=== PATIENT | female | born 1990 | race Caucasian/White ===

== ENCOUNTER 2016-12-11 17:59 | Outpatient (CLI) | END 2016-12-11 18:00 | disposition home or self-care (01) | LOC: AMBL 17:59 | PROVIDERS: ATTEND Emergency Medicine | DX: R56.9 Unspecified convulsions (principal) ==

== ENCOUNTER 2016-12-16 17:50 | Emergency (ER) ==
[2016-12-16 18:05] VITALS: BP 121/76; TEMP 99.3; BMI 29.2
[2016-12-16] MEDS ORDERED: SODIUM CHLORIDE 1,000 ML IV STA (18:13)
[2016-12-16] MEDS ORDERED: DEMEROL 25 MG/ML SYRINGE IVP STA (18:13)
[2016-12-16] MEDS ORDERED: ZOFRAN 4 MG/2 ML IVP STA (18:13)
--- NOTE | 2016-12-16 18:16 | ED.PDOC ---
General Stated Complaint: Been hurting in the rt lower side of the belly, nausea, voiting not able to keep anything corin. Time Seen by Physician: 18:14 Mode of Arrival: Walk-In Information Source: Patient Nursing and Triage Documentation Reviewed and Agree: Yes <RADAMES GUNTER - Last Filed: 12/16/16 18:27> Mode of Arrival: Walk-In Information Source: Patient Nursing and Triage Documentation Reviewed and Agree: Yes <RENETTA BRAGA - Last Filed: 12/21/16 19:15> ED Provider: Dr. RENETTA ALMARAZNORA Chief Complaint: Abdominal Pain GI Complaint Exam - Abdominal Pain Complaint/Exam Onset: Gradual Symptoms Are: Still present Timing: Constant Initial Severity: Severe Current Severity: Severe Location of Pain: RLQ Radiates To: Reports: Back Character: Reports: Dull, Aching Aggravating: Reports: Movement, Deep breaths Alleviating: Reports: None Associated Signs and Symptoms: Reports: Nausea, Vomiting. Denies: Diaphoresis, Fever, Cough, Chest pain, Dizziness, Back pain, Constipation, Blood in stool, Dysuria, Urinary frequency, Decreased urine output, Decreased appetite, Vaginal bleeding, Vaginal discharge, Diarrhea, Sore throat, Decreased activity AAA Risk Factors: Reports: None Cardiac Risk Factors: Reports: None Ectopic Risk Factors: Reports: None Ovarian Torsion Risk Factors: Reports: None Surgical Obstruction Risk Factors: Reports: None Related Surgical History: Reports: None Abdominal Findings: Present: Unequal femoral pulses. Absent: Pulsatile mass, Abdominal distention Differential Diagnoses: Appendicitis, Renal Colic, UTI <RADAMES GUNTER - Last Filed: 12/16/16 18:27> - Abdominal Pain Complaint/Exam Onset: Gradual <RENETTA BRAGA - Last Filed: 12/21/16 19:15> Review of Systems - Review Of Systems Constitutional: Reports: Malaise, Weakness Eyes: Reports: No symptoms Ears, Nose, Mouth, Throat: Reports: No symptoms Respiratory: Reports: No symptoms Cardiac: Reports: No symptoms GI: Reports: Abdominal pain, Nausea, Vomiting : Reports: No symptoms Musculoskeletal: Reports: No symptoms Skin: Reports: No symptoms Neurological: Reports: No symptoms Endocrine: Reports: No symptoms Hematologic/Lymphatic: Reports: No symptoms All Other Systems: Reviewed and Negative <RADAMES GUNTER - Last Filed: 12/16/16 18:27> - Review Of Systems Constitutional: Reports: Malaise, Weakness Eyes: Reports: No symptoms Ears, Nose, Mouth, Throat: Reports: No symptoms Respiratory: Reports: No symptoms Cardiac: Reports: No symptoms GI: Reports: Abdominal pain, Nausea, Vomiting : Reports: No symptoms Musculoskeletal: Reports: No symptoms Skin: Reports: No symptoms Neurological: Reports: No symptoms Endocrine: Reports: No symptoms Hematologic/Lymphatic: Reports: No symptoms All Other Systems: Reviewed and Negative <RENETTA BRAGA - Last Filed: 12/21/16 19:15> Past Medical History - Past Medical History Previously Healthy: Yes Endocrine: Reports: None Cardiovascular: Reports: None Respiratory: Reports: None Hematological: Reports: None Gastrointestinal: Reports: None 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) Neuro/Psych: Reports: None Musculoskeletal: Reports: None Cancer: Reports: None Last Menstrual Period: Patient unsure - Surgical History General Surgical History: Reports: Other (LEEP, HYSTEROSCOPY) - Social History Smoking Status: Current every day smoker, Light tobacco smoker Smoking Cessation Counseling Time: > 3 min - 10 min Hx Substance Use: No Alcohol Screening: None - Immunizations Tetanus Shot up to Date: Yes <RADAMES GUNTER - Last Filed: 12/16/16 18:27> - Past Medical History Endocrine: Reports: None Cardiovascular: Reports: None Respiratory: Reports: None Hematological: Reports: None Gastrointestinal: Reports: None Genitourinary: Reports: Other Neuro/Psych: Reports: None Musculoskeletal: Reports: None Cancer: Reports: None - Surgical History General Surgical History: Reports: Other - Family History Family History: Reports: Unknown - Social History Smoking Status: Light tobacco smoker Smoking Cessation Counseling Time: > 3 min - 10 min Hx Substance Use: No Alcohol Screening: None - Immunizations Tetanus Shot up to Date: Yes <RENETTA BRAGA - Last Filed: 12/21/16 19:15> Physical Exam - Physical Exam Appearance: Ill-appearing, Obese Pain Distress: Severe Eyes: BRIAN, EOMI, Conjunctiva clear ENT: Ears normal, Nose normal, Oropharynx normal Respiratory: Airway patent, Breath sounds clear, Breath sounds equal, Respirations nonlabored Cardiovascular: RRR, Pulses normal, No rub, No murmur GI/: Soft, Tender Musculoskeletal: Normal strength, ROM intact, No edema, No calf tenderness Skin: Warm, Dry, Normal color Neurological: Sensation intact, Motor intact, Reflexes intact, Cranial nerves intact, Alert, Oriented Psychiatric: Affect appropriate, Mood appropriate <RADAMES GUNTER - Last Filed: 12/16/16 18:27> - Physical Exam Appearance: Well-appearing, No pain distress, Well-nourished Eyes: BRIAN, EOMI, Conjunctiva clear ENT: Ears normal, Nose normal, Oropharynx normal Respiratory: Airway patent, Breath sounds clear, Breath sounds equal, Respirations nonlabored Cardiovascular: RRR, Pulses normal, No rub, No murmur GI/: Soft, Nontender, No masses, Bowel sounds normal, No Organomegaly Musculoskeletal: Normal strength, ROM intact, No edema, No calf tenderness Skin: Warm, Dry, Normal color Neurological: Sensation intact, Motor intact, Reflexes intact, Cranial nerves intact, Alert, Oriented Psychiatric: Affect appropriate, Mood appropriate <RENETTA BRAGA - Last Filed: 12/21/16 19:15> Physician Notification - Case Discussed Time of Notification: 19:00 (DR Almaraz) <RADAMES GUNTER - Last Filed: 12/16/16 18:27> Critical Care Note - Critical Care Note Total Time (mins): 0 <RADAMES GUNTER - Last Filed: 12/16/16 18:27> Course - Course Hematology/Chemistry: 12/16/16 18:20 12/16/16 18:20 <RENETTA BRAGA - Last Filed: 12/21/16 19:15> - Course Orders, Labs, Meds: Lab Review 12/16/16 12/16/16 08:08 18:20 WBC 6.46 RBC 4.79 Hgb 12.5 Hct 38.3 MCV 80.0 L MCH 26.1 L MCHC 32.6 RDW Coeff of Flavio 14.6 Plt Count 169 Immature Gran % (Auto) 0.3 Neut % (Auto) 50.1 Lymph % (Auto) 35.1 [place] % (Auto) 10.8 H Eos % (Auto) 3.1 Baso % (Auto) 0.6 Immature Gran # (Auto) 0.0 Neut # 3.2 Lymph # 2.3 [place] # 0.7 Eos # 0.2 Baso # 0.0 Sodium 141 Potassium 3.5 Chloride 111 H Carbon Dioxide 21 Anion Gap 12.5 BUN 7 Creatinine 0.82 Estimated GFR (MDRD) 85.00 BUN/Creatinine Ratio 8.53 Glucose 86 Calcium 9.4 Total Bilirubin 0.48 AST 29 ALT 49 Alkaline Phosphatase 60 Total Protein 7.5 Albumin 4.3 Globulin 3.2 Albumin/Globulin Ratio 1.34 Amylase 51 Lipase 37 Serum , Qual Negative Urine Color Yellow Urine Clarity Clear Urine pH 6.5 Ur Specific [place] 1.025 Urine Protein 1+ Urine Glucose (UA) Negative Urine Ketones Trace Urine Blood Negative Urine Nitrite Negative Urine Bilirubin 1+ Urine Urobilinogen 1.0 Ur Leukocyte Esterase Negative Ur Squamous Epith Cells 20-30 Calcium Oxalate Crystal 3+ Urine Mucus 2+ Orders Category Date Time Status NPO REMINDER: IMAGING ONCE CARE 12/16/16 18:13 Completed ED IV/MEDIPORT/POWERPORT .ONCE EMERGENCY 12/16/16 18:13 Active AMYLASE Stat LAB 12/16/16 18:20 Completed CBC W/ AUTO DIFF Stat LAB 12/16/16 18:20 Completed COMPREHENSIVE METABOLIC PANEL Stat LAB 12/16/16 18:20 Completed LIPASE Stat LAB 12/16/16 18:20 Completed SERUM Stat LAB 12/16/16 18:20 Completed URINALYSIS C & S IF INDICATED Stat LAB 12/16/16 08:08 Completed 0.9 % Sodium Chloride [Saline Flush] MEDS 12/16/16 18:13 Discontinued 1 syr IVF PRN PRN Meperidine HCl/Pf [Demerol 25 mg/ml Syringe] MEDS 12/16/16 18:13 Discontinued 25 mg IVP ONCE STA Ondansetron HCl/Pf [Zofran 4 mg/2 ml] MEDS 12/16/16 18:13 Discontinued 4 mg IVP ONCE STA Sodium Chloride 0.9% [Sodium Chloride] 1,000 ml MEDS 12/16/16 18:13 Discontinued IV 125 mls/hr CT ABDOMEN/PELVIS W CONTRAST Stat RADS 12/16/16 18:13 Completed Medications Discontinued Medications Generic Name Dose Route Start Last Admin Trade Name Freq PRN Reason Stop Dose Admin Sodium Chloride 1,000 mls @ 125 mls/hr 12/16/16 18:13 12/16/16 18:27 Sodium Chloride IV 12/17/16 02:12 125 mls/hr .Q8H STA Administration Meperidine HCl 25 mg 12/16/16 18:13 12/16/16 18:26 Demerol 25 Mg/Ml Syringe IVP 12/16/16 18:14 25 mg ONCE STA Administration Ondansetron HCl 4 mg 12/16/16 18:13 12/16/16 18:26 Zofran 4 Mg/2 Ml IVP 12/16/16 18:14 4 mg ONCE STA Administration Sodium Chloride 1 syr 12/16/16 18:13 12/16/16 18:27 Saline Flush IVF 1 syr PRN PRN Administration To flush IV Vital Signs: Temp Pulse Resp BP Pulse Ox 12/16/16 17:50 99.3 F 84 24 121/76 98 Departure <RADAMES GUNTER - Last Filed: 12/16/16 18:27> - Departure Time of Disposition: 19:35 Pt referred to PMD for follow-up: Yes Disposition Discussed With: Patient, Family <RENETTA BRAGA - Last Filed: 12/21/16 19:15> - Departure Disposition: HOME SELF-CARE Discharge Problem: Abdominal pain Instructions: Abdominal Pain (ED) Condition: Good Additional Instructions: f/u with pcp--consider seeing buck swamper about ovarian cyst Allergies/Adverse Reactions: Allergies cyclobenzaprine [From Flexeril] Adverse Reaction (Verified 12/16/16 17:57) Home Medications: Ambulatory Orders 1 [No Reported Medications] 12/16/16
[2016-12-16 18:25] LABS: BASOPHILS % (AUTO) 0.6 % (0.0-3.0); EOSINOPHILS # (AUTO) 0.2 K/ul (0.0-0.7); EOSINOPHILS % (AUTO) 3.1 % (0.0-7.0); HEMATOCRIT 38.3 % (37.0-47.0); HEMOGLOBIN 12.5 g/dl (12.0-16.0); IMMATURE GRANULOCYTE % (AUTO) 0.3 % (0.0-5.0); LYMPHOCYTES # (AUTO) 2.3 K/uL (0.60-3.4); LYMPHOCYTES % (AUTO) 35.1 (10.0-50.0); MEAN CORPUSCULAR HEMOGLOBIN 26.1 pg (27.0-31.0); MEAN CORPUSCULAR HGB CONC 32.6 (31.8-35.4); MONOCYTES # (AUTO) 0.7 K/uL (0.4-2.0); MONOCYTES % (AUTO) 10.8 (0-10); NEUTROPHILS # (AUTO) 3.2 K/ul (2.0-6.9); NEUTROPHILS % (AUTO) 50.1; PLATELET COUNT 169 10^3/uL (140-440); RED BLOOD COUNT 4.79 10^6/ul (4.20-5.40); WHITE BLOOD COUNT 6.46 K/ul (4.6-10.2)
[2016-12-16 18:37] LABS: BILIRUBIN,URINE 1+ (NEGATIVE); KETONES,URINE Trace (NEGATIVE); LEUKOCYTE ESTERASE ,URINE Negative (NEGATIVE); NITRITE,URINE Negative (NEGATIVE); PH,URINE 6.5 (5-9); PROTEIN,URINE 1+ (NEGATIVE); URINE, BLOOD Negative (NEGATIVE)
[2016-12-16 18:38] LABS: ADD URINE MICROSCOPIC YES
[2016-12-16 18:46] LABS: ALBUMIN 4.3 g/dL (3.4-5.0); ALBUMIN/GLOBULIN RATIO 1.34; ANION GAP 12.5; BILIRUBIN,TOTAL 0.48 mg/dL (0.00-1.20); BUN/CREATININE RATIO 8.53; CALCIUM 9.4 mg/dL (8.2-10.2); CREATININE 0.82 mg/dL (0.60-1.30); POTASSIUM 3.5 mmol/L (3.5-5.10); SERUM PREGNANCY INTERNAL QC INTERNAL QC VALID; TOTAL PROTEIN 7.5 g/dL (6.4-8.2)
--- NOTE | 2016-12-16 19:31 | CT ---
EXAM: CT abdomen pelvis with intravenous contrast 12/16/2016. Sagittal and coronal reformatted susannah ges obtained HISTORY: Right lower quadrant pain COMPARISON: None. FINDINGS: The liver shows no acute abnormality. Gallbladder has been removed. The adrenal glands and kidneys show no acute process. No hydronephrosis. The spleen and pancreas show no acute abnormality. There is no evidence of bowel obstruction. Normal appendix. Unremarkable urinary bladder. Small quantityof free fluid within the dependent aspect of the pelvis. This is nonspecific however could be physiologic. Rim enhancing left ovarian cyst measures 1.4 x 1.8 cm diameter, coronal series image 36. No acute osseous abnormality. IMPRESSION: 1. No urinary or bowel obstruction and normal appendix 2. Small quantity of nonspecific free fluid within the dependent aspect of the pelvis. 3. Circumaortic left renal vein. 4. Status post cholecystectomy. 5. Rim enhancing left ovarian cyst on coronal series image 36 measures 1.4 x 1.8 cm diameter.
== END 2016-12-16 19:50 | disposition home or self-care (01) ==
LOC: ED 17:50
DX: R10.31 Right lower quadrant pain (principal); R11.2 Nausea with vomiting, unspecified; N83.202 Unspecified ovarian cyst, left side; F17.210 Nicotine dependence, cigarettes, uncomplicated
CPT/HCPCS: 36415; 80053; 81001; 82150; 83690; 84703; 85025; 96360; 96361; 96375; 99284

== ENCOUNTER 2017-02-05 22:52 | Emergency (ER) ==
[2017-02-05 23:03] VITALS: BP 109/71; TEMP 98.2; BMI 30.9
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
[2017-02-06] MEDS ORDERED: NORCO 5-325 PO STA (00:10)
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
== END 2017-02-06 01:03 | disposition home or self-care (01) ==
LOC: ED 22:52
DX: S93.492A Sprain of other ligament of left ankle, initial encounter (principal); W18.30XA Fall on same level, unspecified, initial encounter; F17.210 Nicotine dependence, cigarettes, uncomplicated
CPT/HCPCS: 99283

== ENCOUNTER 2017-02-21 17:02 | Emergency (ER) ==
[2017-02-21 17:08] VITALS: BP 108/74; TEMP 97.5; BMI 32.5
[2017-02-21 17:53] LABS: BILIRUBIN,URINE Negative (NEGATIVE); KETONES,URINE Negative (NEGATIVE); LEUKOCYTE ESTERASE ,URINE Negative (NEGATIVE); NITRITE,URINE Negative (NEGATIVE); PH,URINE 6.5 (5-9); PROTEIN,URINE Negative (NEGATIVE); URINE, BLOOD 3+ (NEGATIVE)
[2017-02-21 17:54] LABS: ADD URINE MICROSCOPIC YES
[2017-02-21 17:58] LABS: URINE PREGNANCY INTERNAL QC INTERNAL QC VALID
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
[2017-02-21 18:09] LABS: BACTERIA,URINE TRACE (NOT PRESENT)
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
== END 2017-02-21 19:26 | disposition home or self-care (01) ==
LOC: ED 17:02
DX: M25.511 Pain in right shoulder (principal); M25.552 Pain in left hip; V86.99XA Unspecified occupant of other special all-terrain or other off-road motor vehicle injured in nontraffic accident, initial encounter; F17.210 Nicotine dependence, cigarettes, uncomplicated
CPT/HCPCS: 81001; 81025; 99283

== ENCOUNTER 2017-02-27 09:47 | Outpatient (CLI) ==
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
[2017-02-27 11:27] LABS: BASOPHILS % (AUTO) 0.1 % (0.0-3.0); BILIRUBIN,URINE Negative (NEGATIVE); EOSINOPHILS % (AUTO) 0.3 % (0.0-7.0); HEMATOCRIT 37.5 % (37.0-47.0); HEMOGLOBIN 12.3 g/dl (12.0-16.0); IMMATURE GRANULOCYTE % (AUTO) 0.6 % (0.0-5.0); KETONES,URINE Negative (NEGATIVE); LEUKOCYTE ESTERASE ,URINE Negative (NEGATIVE); LYMPHOCYTES # (AUTO) 2.5 K/uL (0.60-3.4); LYMPHOCYTES % (AUTO) 16.1 (10.0-50.0); MEAN CORPUSCULAR HEMOGLOBIN 25.6 pg (27.0-31.0); MEAN CORPUSCULAR HGB CONC 32.8 (31.8-35.4); MEAN CORPUSCULAR VOLUME 78.1 fl (81.0-99.0); MONOCYTES # (AUTO) 1.3 K/uL (0.4-2.0); MONOCYTES % (AUTO) 8.1 (0-10); NEUTROPHILS # (AUTO) 11.8 K/ul (2.0-6.9); NEUTROPHILS % (AUTO) 74.8; NITRITE,URINE Negative (NEGATIVE); PH,URINE 8.5 (5-9); PLATELET COUNT 217 10^3/uL (140-440); PROTEIN,URINE Negative (NEGATIVE); URINE, BLOOD Negative (NEGATIVE); WHITE BLOOD COUNT 15.76 K/ul (4.6-10.2)
[2017-02-27 11:31] LABS: ADD URINE MICROSCOPIC NO
[2017-02-27 11:44] LABS: ALBUMIN 4.1 g/dL (3.4-5.0); ALBUMIN/GLOBULIN RATIO 1.32; ANION GAP 12.8; BILIRUBIN,TOTAL 0.49 mg/dL (0.00-1.20); BUN/CREATININE RATIO 12.65; CALCIUM 9.7 mg/dL (8.2-10.2); CREATININE 0.79 mg/dL (0.60-1.30); POTASSIUM 3.8 mmol/L (3.5-5.10); TOTAL PROTEIN 7.2 g/dL (6.4-8.2)
== END 2017-02-27 09:48 | disposition home or self-care (01) ==
LOC: RAD 09:47
PROVIDERS: ATTEND Nurse Practitioner Family
DX: S46.011A Strain of muscle(s) and tendon(s) of the rotator cuff of right shoulder, initial encounter (principal); R31.9 Hematuria, unspecified; V86.99XA Unspecified occupant of other special all-terrain or other off-road motor vehicle injured in nontraffic accident, initial encounter
CPT/HCPCS: 36415; 80053; 81001; 85025

== ENCOUNTER 2017-04-18 22:05 | Emergency (ER) ==
[2017-04-18 22:17] VITALS: BP 102/68; TEMP 98.7; BMI 27.4
[2017-04-18] MEDS ORDERED: DILAUDID 2 MG/ML SYRINGE IM STA (22:21)
[2017-04-18] MEDS ORDERED: PHENERGAN 25 MG/ML VIAL IM STA (22:21)
[2017-04-18] MEDS ORDERED: NORFLEX IM STA (22:21)
[2017-04-18] MEDS ORDERED: TORADOL IM STA (22:21)
[2017-04-18 22:42] LABS: SERUM PREGNANCY INTERNAL QC INTERNAL QC VALID
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
--- NOTE | 2017-04-18 23:22 | CT ---
EXAM: CT lumbar spine without intravenous contrast 04/18/2017. Sagittal and coronal reformatted susananh ges obtained HISTORY: Fall COMPARISON: 12/16/2016 FINDINGS: A normal lumbar lordosis is maintained. Vertebral bodies appear intact without fracture. The facet joints align normally. No fracture or subluxation identified at any level. Mild multilevel degenerative disc disease. Small areas of posterior disc bulge cause flattening of t he thecal sac. This is most prominent at L4-L5 and L5-S1. IMPRESSION: No acute osseous abnormality of the lumbar spine.
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
--- NOTE | 2017-04-18 23:48 | ED.PDOC ---
General ED Provider: Dr. RENETTA ALANIS-ER Chief Complaint: Fall Stated Complaint: i fell and my lower back hurts Time Seen by Physician: 22:10 Mode of Arrival: Walk-In Information Source: Patient Exam Limitations: No limitations Primary Care Provider: ORACIO NICHOLSON Nursing and Triage Documentation Reviewed and Agree: Yes Musculoskeletal Complaint Exam - Back Pain Complaint/Exam Mechanism of Injury: Reports: Trauma Onset/Duration: one hour Symptoms Are: Still present Timing: Constant Initial Severity: Mild Current Severity: Mild Location: Reports: Discrete Character: Reports: Dull, Aching Aggravating: Reports: Movements, Lifting, Bending, Walking Alleviating: Reports: None Associated Signs and Symptoms: Denies: Swelling, Redness, Bruising, Fever, Weakness, Numbness, Tingling, Abdominal pain, Flank pain, Bladder incontinence, Bowel incontinence, Weight loss, Pain with weight bearing Related Surgical History: Reports: None Focal Tenderness: Yes Paraspinal Muscle Tenderness: No Paraspinal Muscle Spasm: No Scoliosis: No Lordosis: No Kyphosis: No SLR Test: Right Negative, Left Negative Hip Motion Testing Pain: Right Negative, Left Negative Focal Weakness: Present: None Focal Sensory Loss: Present: None Gait: Present: Normal Differential Diagnoses: Herniated Disk, Strain, Sprain Review of Systems - Review Of Systems Constitutional: Reports: No symptoms Eyes: Reports: No symptoms Ears, Nose, Mouth, Throat: Reports: No symptoms Respiratory: Reports: No symptoms Cardiac: Reports: No symptoms GI: Reports: No symptoms : Reports: No symptoms Musculoskeletal: Reports: Back pain Skin: Reports: No symptoms Neurological: Reports: No symptoms Endocrine: Reports: No symptoms Hematologic/Lymphatic: Reports: No symptoms All Other Systems: Reviewed and Negative Past Medical History - Past Medical History Previously Healthy: Yes Endocrine: Reports: None Cardiovascular: Reports: None Respiratory: Reports: None Hematological: Reports: None Gastrointestinal: Reports: None Genitourinary: Reports: Other Neuro/Psych: Reports: None Musculoskeletal: Reports: None Cancer: Reports: None Last Menstrual Period: PRESENTLY - Surgical History General Surgical History: Reports: Other - Family History Family History: Reports: Unknown - Social History Smoking Status: Current every day smoker, Heavy tobacco smoker Hx Substance Use: No Alcohol Screening: None Lives: With family - Immunizations Tetanus Shot up to Date: Yes Physical Exam - Physical Exam Appearance: Well-appearing, No pain distress, Well-nourished Pain Distress: Mild Eyes: BRIAN, EOMI, Conjunctiva clear ENT: Ears normal, Nose normal, Oropharynx normal Neck: Supple Respiratory: Airway patent, Breath sounds clear, Breath sounds equal, Respirations nonlabored Cardiovascular: RRR, Pulses normal, No rub, No murmur GI/: Soft Musculoskeletal: Limited ROM Skin: Warm Neurological: Sensation intact Psychiatric: Affect appropriate Interpretation - Radiology Interpretation Radiology Interpretation By: Radiologist Radiology Results: Negative Exam Interpreted: CT Scan Critical Care Note - Critical Care Note Total Time (mins): 0 Course - Course Orders, Labs, Meds: Lab Review 04/18/17 22:20 Serum , Qual Negative Orders Category Date Time Status SERUM Stat LAB 04/18/17 22:20 Completed Hydromorphone HCl/Pf [Dilaudid 2 mg/ml Syringe] MEDS 04/18/17 22:21 Discontinued 2 mg IM ONCE STA Ketorolac Tromethamine [Toradol] MEDS 04/18/17 22:21 Discontinued 60 mg IM ONCE STA Orphenadrine Citrate [Norflex] MEDS 04/18/17 22:21 Discontinued 60 mg IM ONCE STA Promethazine HCl [Phenergan 25 mg/ml Vial] MEDS 04/18/17 22:21 Discontinued 25 mg IM ONCE STA CT LUMBAR SPINE W/O CONTRAST Stat RADS 04/18/17 22:[address] PELVIS W/O CONTRAST Stat RADS 04/18/17 22:[address] THORACIC SPINE W/O CONTRAST Stat RADS 04/18/17 22:20 Completed Medications Discontinued Medications Generic Name Dose Route Start Last Admin Trade Name Freq PRN Reason Stop Dose Admin Hydromorphone HCl 2 mg 04/18/17 22:21 04/18/17 22:54 Dilaudid 2 Mg/Ml Syringe IM 04/18/17 22:22 2 mg ONCE STA Administration Ketorolac Tromethamine 60 mg 04/18/17 22:21 04/18/17 22:54 Toradol IM 04/18/17 22:22 60 mg ONCE STA Administration Orphenadrine Citrate 60 mg 04/18/17 22:21 04/18/17 22:55 Norflex IM 04/18/17 22:22 60 mg ONCE STA Administration Promethazine HCl 25 mg 04/18/17 22:21 04/18/17 22:54 Phenergan 25 Mg/Ml Vial IM 04/18/17 22:22 25 mg ONCE STA Administration Vital Signs: Temp Pulse Resp BP Pulse Ox 04/18/17 22:06 98.7 F 89 18 102/68 96 Departure - Departure Time of Disposition: 23:47 Disposition: HOME SELF-CARE Discharge Problem: Low back pain Qualifiers: Chronicity: acute Back pain laterality: unspecified Sciatica presence: without sciatica Qualified Code(s): M54.5 - Low back pain Instructions: Acute Low Back Pain (ED) Condition: Good Pt referred to PMD for follow-up: Yes Additional Instructions: motrin for pain--f/u wjith pcp Allergies/Adverse Reactions: Allergies cyclobenzaprine [From Flexeril] Adverse Reaction (Verified 04/18/17 22:17) "MAKES ME MEAN" Home Medications: Ambulatory Orders 1 [No Reported Medications] 04/18/17 Disposition Discussed With: Patient
== END 2017-04-18 23:55 | disposition home or self-care (01) ==
LOC: ED 22:05
DX: M54.5 Low back pain (principal); W19.XXXA Unspecified fall, initial encounter; F17.210 Nicotine dependence, cigarettes, uncomplicated
CPT/HCPCS: 36415; 84703; 96372; 99283

== ENCOUNTER 2017-06-21 14:47 | Outpatient (CLI) ==
[2017-06-22 08:22] LABS: FLU INTERNAL QC INTERNAL QC VALID
[2017-06-22 08:23] LABS: RAPID FLU A POSITIVE (NEGATIVE); RAPID FLU B NEGATIVE (NEGATIVE)
== END 2017-06-21 14:48 | disposition home or self-care (01) ==
LOC: OUTPT 14:47
PROVIDERS: ATTEND Nurse Practitioner Family
DX: R05 Cough (principal); R50.9 Fever, unspecified
CPT/HCPCS: 87651; 87804; 87880

== ENCOUNTER 2017-07-08 11:37 | Emergency (ER) ==
[2017-07-08 11:41] VITALS: BP 109/72; TEMP 97.8; BMI 30.9
--- NOTE | 2017-07-08 13:38 | DI ---
EXAM: Three views of the right wrist. History: Right wrist pain. Findings: No acute fracture or dislocation. No radiopaque foreign bodies. Well corticated ossific density seen adjacent to the radial styloid compatible with old trauma or accessory ossicle. Impression: No acute osseous abnormality
--- NOTE | 2017-07-08 13:40 | DI ---
EXAM: Three views of the right hand. History: Right hand pain. Findings: No acute fracture or dislocation. Joint spaces are preserved. Well corticated ossific de nsity adjacent to the radial styloid consistent with old trauma or accessory ossicle. Impression: No acute osseous abnormality
--- NOTE | 2017-07-08 14:09 | ED.PDOC ---
General ED Provider: Dr. CANDACE LIRIANO Chief Complaint: Hand Pain/Injury Stated Complaint: right hand/ wrist injury Time Seen by Physician: 11:45 (seen with vania at all times ) Mode of Arrival: Walk-In Information Source: Patient Exam Limitations: No limitations Primary Care Provider: ORACIO NICHOLSON Nursing and Triage Documentation Reviewed and Agree: Yes Musculoskeletal Complaint Exam - Hand/Wrist Complaint/Exam Location of Pain: Reports: Right, Hand, Wrist Mechanism of Injury: Reports: Trauma (blunt force 1 day ago ) Onset/Duration: 1 day Symptoms Are: Still present Onset of Pain: Reports: Hours Initial Severity: Moderate Current Severity: Mild Location: Reports: Discrete (dorsal right hand and wrist no snuff box pain , no pain on axial load of the thumb) Character: Reports: Dull Alleviating: Reports: Rest Aggravating: Reports: Movement Associated Signs and Symptoms: Denies: Swelling, Redness, Bruising, Fever, Weakness, Numbness, Tingling Dominant Hand: Right Related Surgical History: Reports: None Hand/Wrist Findings: Absent: Swelling, Ecchymosis, Abnormal contour Tenderness: Present: Ulna, Metacarpal, Phalanx. Absent: Snuff box Differential Diagnoses: Closed Fracture, Sprain, Strain Review of Systems - Review Of Systems Constitutional: Reports: No symptoms Eyes: Reports: No symptoms Ears, Nose, Mouth, Throat: Reports: No symptoms Respiratory: Reports: No symptoms Cardiac: Reports: No symptoms GI: Reports: No symptoms : Reports: No symptoms Musculoskeletal: Reports: Joint pain (wrist and hand ) Skin: Reports: No symptoms Neurological: Reports: No symptoms Endocrine: Reports: No symptoms Hematologic/Lymphatic: Reports: No symptoms All Other Systems: Reviewed and Negative Past Medical History - Past Medical History Previously Healthy: Yes Endocrine: Reports: None Cardiovascular: Reports: None Respiratory: Reports: None Hematological: Reports: None Gastrointestinal: Reports: None Genitourinary: Reports: Other Neuro/Psych: Reports: None Musculoskeletal: Reports: None Cancer: Reports: None Last Menstrual Period: last month (due any time) - Surgical History General Surgical History: Reports: Other - Family History Family History: Reports: Unknown - Social History Smoking Status: Current every day smoker, Heavy tobacco smoker Hx Substance Use: No Alcohol Screening: None Physical Exam - Physical Exam Appearance: Well-appearing, No pain distress, Well-nourished Eyes: BRIAN, EOMI, Conjunctiva clear ENT: Ears normal, Nose normal, Oropharynx normal Respiratory: Airway patent, Breath sounds clear, Breath sounds equal, Respirations nonlabored Cardiovascular: RRR, Pulses normal, No rub, No murmur GI/: Soft, Nontender, No masses, Bowel sounds normal, No Organomegaly Musculoskeletal: Normal strength, ROM intact, No edema, No calf tenderness Skin: Warm, Dry, Normal color Neurological: Sensation intact, Motor intact, Reflexes intact, Cranial nerves intact, Alert, Oriented Psychiatric: Affect appropriate, Mood appropriate Interpretation - Radiology Interpretation Radiology Interpretation By: Radiologist Radiology Results: No acute changes Critical Care Note - Critical Care Note Total Time (mins): 0 Course - Course Orders, Labs, Meds: Orders Category Date Time Status HAND, RIGHT 3 VIEWS Stat RADS 07/08/17 13:03 Ordered WRIST, RIGHT 3 VIEWS Stat RADS 07/08/17 13:03 Ordered Vital Signs: Temp Pulse Resp BP Pulse Ox 07/08/17 11:38 97.8 F 77 20 109/72 98 Departure - Departure Time of Disposition: 14:10 (film reports were highlighted and discussed with pt ) Disposition: HOME SELF-CARE Discharge Problem: Hand pain Instructions: Hand Sprain (ED), Wrist Sprain (ED) Condition: Good Pt referred to PMD for follow-up: Yes Additional Instructions: Please call your Family Physician as soon as possible to schedule a follow-up appointment. Allergies/Adverse Reactions: Allergies cyclobenzaprine [From Flexeril] Adverse Reaction (Verified 07/08/17 13:07) "MAKES ME MEAN" Home Medications: Ambulatory Orders 1 [No Reported Medications] 04/18/17
== END 2017-07-08 14:18 | disposition home or self-care (01) ==
LOC: ED 11:37
DX: M79.641 Pain in right hand (principal); M25.531 Pain in right wrist; W22.8XXA Striking against or struck by other objects, initial encounter; F17.210 Nicotine dependence, cigarettes, uncomplicated
CPT/HCPCS: 99283

== ENCOUNTER 2017-08-23 12:48 | Outpatient (CLI) | END 2017-08-23 12:49 | disposition home or self-care (01) | LOC: LAB 12:48 | PROVIDERS: ATTEND Physician Assistant | DX: N92.6 Irregular menstruation, unspecified (principal) | CPT/HCPCS: 36415; 84703 ==

== ENCOUNTER 2017-09-15 12:10 | Emergency (ER) ==
[2017-09-15 12:28] VITALS: BP 110/74; TEMP 97.6; BMI 26.5
[2017-09-15] MEDS ORDERED: TORADOL IM STA (12:38)
--- NOTE | 2017-09-15 13:33 | CT ---
EXAM: CT abdomen and pelvis without contrast HISTORY: Hematuria and flank pain TECHNIQUE: Multi-slice transaxial helical with coronal and sagittal reformed images COMPARISON: CT abdomen/pelvis from 12/16/2016 FINDINGS: The lung bases are free of acute airspace or interstitial opacities. The heart size is nor mal. There are no pericardial or pleural effusions. The hepatic attenuation is normal relative to the spleen. The gallbladder is absent without biliary dilatation. The spleen has normal size and attenuation. The pancreas and adrenal glands are normal. The kidneys and ureters are grossly normal. The nonopacified bladder is normal. The uterus and adne xa are grossly normal. The intestines including the appendix have normal caliber. The aorta has normal caliber. No lymphad enopathy or ascites are appreciated. The bones are free of suspicious osteolytic or osteoblastic lesions. An intramedullary patsy is noted i n the right femoral shaft. No acute fractures are appreciated. IMPRESSION: 1. Nonobstructive intestinal gas pattern. Normal appendix. 2. Normal renal collecting systems. 3. Previous cholecystectomy without biliary dilatation. 4. No adnexal lesions. 5. No lymphadenopathy or ascites.
--- NOTE | 2017-09-15 13:42 | ED.PDOC ---
General ED Provider: Dr. CANDACE LIRIANO Chief Complaint: Urinary Problem Stated Complaint: dysuria Time Seen by Physician: 12:30 (bilateral flank pain with RX to groin) Mode of Arrival: Walk-In Information Source: Patient Exam Limitations: No limitations Primary Care Provider: ORACIO NICHOLSON Nursing and Triage Documentation Reviewed and Agree: Yes Reviewed sepsis parameters & appropriate labs ordered?: Yes (seen with entire nursing staff and PA STUDENT) System Inflammatory Response Syndrome: Not Applicable Sepsis Protocol: For patient's 13 years and over: Temp is 96.8 and below OR 101 and greater Pulse >90 BPM Resp >20/minute Acutely Altered Mental Status Are patient's symptoms suggestive of a new infection, such as: -Pneumonia -Skin, Soft Tissue -Endocarditis -UTI -Bone, Joint Infection -Implantable Device -Acute Abdominal Infection -Wound Infection -Meningitis -Blood Stream Catheter Infection -Unknown System Inflammatory Response Syndrome: Not Applicable Musculoskeletal Complaint Exam - Back Pain Complaint/Exam Mechanism of Injury: Reports: No known trauma Onset/Duration: TODAY MORNING SOME DYSURIA Symptoms Are: Still present (REPORTED OF HEMATURIA) Timing: Intermittent Episodes Lasting: Hours Initial Severity: Moderate Current Severity: Mild Location: Reports: Discrete Character: Reports: Aching Alleviating: Reports: None Associated Signs and Symptoms: Reports: Abdominal pain, Flank pain (BILATERAL) Related History: Reports: Similar episode TAD Risk Factors: Reports: None AAA Risk Factors: Reports: None Cauda Equina Risk Factors: Reports: None Epidural Abcess Risk Factors: Reports: None Related Surgical History: Reports: None Focal Tenderness: No Paraspinal Muscle Tenderness: No Paraspinal Muscle Spasm: No Scoliosis: No Lordosis: No Kyphosis: No SLR Test: Right Negative, Left Negative Hip Motion Testing Pain: Right Negative, Left Negative Focal Weakness: Present: None Focal Sensory Loss: Present: None Gait: Present: Normal Differential Diagnoses: Renal Colic, Strain, Sprain Review of Systems - Review Of Systems Constitutional: Reports: No symptoms Eyes: Reports: No symptoms Ears, Nose, Mouth, Throat: Reports: No symptoms Respiratory: Reports: No symptoms Cardiac: Reports: No symptoms GI: Reports: No symptoms : Reports: Dysuria, Hematuria Musculoskeletal: Reports: Back pain Skin: Reports: No symptoms Neurological: Reports: No symptoms Endocrine: Reports: No symptoms Hematologic/Lymphatic: Reports: No symptoms All Other Systems: Reviewed and Negative Past Medical History - Past Medical History Previously Healthy: Yes Endocrine: Reports: None Cardiovascular: Reports: None Respiratory: Reports: None Hematological: Reports: None Gastrointestinal: Reports: None Genitourinary: Reports: Other Neuro/Psych: Reports: None Musculoskeletal: Reports: None Cancer: Reports: None Last Menstrual Period: 09/04/2017 - Surgical History General Surgical History: Reports: Other - Family History Family History: Reports: Unknown - Social History Smoking Status: Current every day smoker, Heavy tobacco smoker Hx Substance Use: No Alcohol Screening: None - Immunizations Tetanus Shot up to Date: Yes Physical Exam - Physical Exam Appearance: Well-appearing, No pain distress, Well-nourished Eyes: BRIAN, EOMI, Conjunctiva clear ENT: Ears normal, Nose normal, Oropharynx normal Respiratory: Airway patent, Breath sounds clear, Breath sounds equal, Respirations nonlabored Cardiovascular: RRR, Pulses normal, No rub, No murmur GI/: Soft, Nontender, No masses, Bowel sounds normal, No Organomegaly Musculoskeletal: Normal strength, ROM intact, No edema, No calf tenderness Skin: Warm, Dry, Normal color Neurological: Sensation intact, Motor intact, Reflexes intact, Cranial nerves intact, Alert, Oriented Psychiatric: Affect appropriate, Mood appropriate Interpretation - Radiology Interpretation Radiology Interpretation By: Radiologist Radiology Results: No acute changes Critical Care Note - Critical Care Note Total Time (mins): 0 Course - Course Hematology/Chemistry: 09/15/17 12:40 09/15/17 12:40 Orders, Labs, Meds: Lab Review 09/15/17 09/15/17 09/15/17 12:30 12:30 12:40 WBC 6.14 RBC 4.68 Hgb 12.5 Hct 37.0 MCV 79.1 L MCH 26.7 L MCHC 33.8 RDW Coeff of Flavio 15.2 H Plt Count 190 Immature Gran % (Auto) 0.2 Neut % (Auto) 52.0 Lymph % (Auto) 34.2 [place] % (Auto) 9.8 Eos % (Auto) 3.3 Baso % (Auto) 0.5 Immature Gran # (Auto) 0.0 Neut # 3.2 Lymph # 2.1 [place] # 0.6 Eos # 0.2 Baso # 0.0 Sodium Potassium Chloride Carbon Dioxide Anion Gap BUN Creatinine Estimated GFR (MDRD) BUN/Creatinine Ratio Glucose Calcium Total Bilirubin AST ALT Alkaline Phosphatase Total Protein Albumin Globulin Albumin/Globulin Ratio Urine Color Renata Urine Clarity Cloudy Urine pH 6.0 Ur Specific [place] 1.015 Urine Protein 1+ Urine Glucose (UA) Negative Urine Ketones Negative Urine Blood 3+ Urine Nitrite Negative Urine Bilirubin Negative Urine Urobilinogen 0.2 Ur Leukocyte Esterase Negative Urine Microscopic RBC Tntc Ur Squamous Epith Cells 30-50 Urine Bacteria 1+ Urine Test Negative 09/15/17 12:40 WBC RBC Hgb Hct MCV MCH MCHC RDW Coeff of Flavio Plt Count Immature Gran % (Auto) Neut % (Auto) Lymph % (Auto) [place] % (Auto) Eos % (Auto) Baso % (Auto) Immature Gran # (Auto) Neut # Lymph # [place] # Eos # Baso # Sodium 139 Potassium 4.1 Chloride 109 H Carbon Dioxide 20 L Anion Gap 14.1 BUN 10 Creatinine 0.89 Estimated GFR (MDRD) 77.00 BUN/Creatinine Ratio 11.23 Glucose 108 Calcium 9.0 Total Bilirubin 0.3 AST 71 H ALT 116 H Alkaline Phosphatase 59 Total Protein 7.0 Albumin 3.2 L Globulin 3.8 Albumin/Globulin Ratio 0.84 Urine Color Urine Clarity Urine pH Ur Specific [place] Urine Protein Urine Glucose (UA) Urine Ketones Urine Blood Urine Nitrite Urine Bilirubin Urine Urobilinogen Ur Leukocyte Esterase Urine Microscopic RBC Ur Squamous Epith Cells Urine Bacteria Urine Test Orders Category Date Time Status CBC W/ AUTO DIFF Stat LAB 09/15/17 12:35 Ordered COMPREHENSIVE METABOLIC PANEL Stat LAB 09/15/17 12:35 Ordered URINALYSIS C & S IF INDICATED Stat LAB 09/15/17 12:35 Uncollected URINE CULTURE Stat LAB 09/15/17 12:30 Received URINE Stat LAB 09/15/17 12:35 Uncollected Ketorolac Tromethamine [Toradol] MEDS 09/15/17 12:38 Stat 60 mg IM ONCE STA CT ABD/PEL WO RENAL STONE PROT Stat RADS 09/15/17 12:35 Ordered Medications Discontinued Medications Generic Name Dose Route Start Last Admin Trade Name Freq PRN Reason Stop Dose Admin Ketorolac Tromethamine 60 mg 09/15/17 12:38 09/15/17 13:02 Toradol IM 09/15/17 12:39 60 mg ONCE STA Administration Vital Signs: Temp Pulse Resp BP Pulse Ox 09/15/17 12:19 97.6 F 90 18 110/74 96 Departure - Departure Time of Disposition: 13:42 Disposition: HOME SELF-CARE Discharge Problem: Urinary symptoms Hematuria Qualifiers: Hematuria type: unspecified type Qualified Code(s): R31.9 - Hematuria, unspecified Instructions: Hematuria (ED) Condition: Good Pt referred to PMD for follow-up: Yes IPMP verified?: Yes Additional Instructions: Please call your Family Physician as soon as possible to schedule a follow-up appointment. YOU HAVE SOME BLOOD IN YOUR URINE THERE SHOULD BE NO BLOOD IN URINE EXAM. PLEASE HAVE YOUR DOCTOR TO RECHECK THE ISSUE IN A BOUT 1 WEEKS TIME RETURN NEEDED Prescriptions: Hydrocodone/Acetaminophen [[place] 10-325 Tablet] 1 each PO Q8HR #7 tablet Allergies/Adverse Reactions: Allergies cyclobenzaprine [From Flexeril] Adverse Reaction (Verified 07/08/17 13:07) "MAKES ME MEAN" Home Medications: Ambulatory Orders Buspirone HCl 15 mg PO TID 09/15/17 Gabapentin 200 mg PO BID 09/15/17 Hydrocodone/Acetaminophen [[place] 10-325 Tablet] 1 each PO Q8HR #7 tablet Quetiapine Fumarate [Seroquel] 50 mg PO BID 09/15/17 Ropinirole HCl [Requip] 1 mg PO BEDTIME 09/15/17 Disposition Discussed With: Patient, Family
== END 2017-09-15 14:07 | disposition home or self-care (01) ==
LOC: ED 12:10
DX: R31.9 Hematuria, unspecified (principal); R30.0 Dysuria; R10.9 Unspecified abdominal pain; M54.9 Dorsalgia, unspecified; F17.210 Nicotine dependence, cigarettes, uncomplicated
CPT/HCPCS: 36415; 74176; 80053; 81001; 81025; 85025; 87086; 96372; 99283

== ENCOUNTER 2017-11-27 11:58 | Outpatient (RCR) ==
--- NOTE | 2017-11-28 08:36 | RS.OPPTEV2 ---
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 Prior Level of Function.....Patient was independent with: ADL's, Self Care, Work /Vocation, Caregiving, Ambulation/Mobility, Community Integration/Access Level of Function: pt currently employed at [employer], with no restrictions. Functional Limitations: Sleep, Pushing, Pulling, Lifting, Ambulation, Community Access/Integration Current Subjective/complaints:: pt states she convinced MD to allow her to return to work, even though work increases her pain. pt states she just started this job and is afraid she will lose the job if she has to miss work. Treatment Side (optional): N/A *Precautions: n/a Medical History Medical History Comments:: anxiety, ADHD, bipolar disorder, pseudoseizure, HPV, hx of bone fracture R femure, L ankle Surgical History: Cholecystectomy Surgical History Comments:: R femur ORIF, L ankle fx ORIF Smoking Status: Current some day smoker Hx Home Medications: pt states she isnt taking meds because she cannot afford them right now. Patient's Goals: decrease pain Pain Assessment - Pain Description Pain Location: low back pain radiating into RLE Pain Description: Aching ( ) Current Pain Intensity: 8/10 Functional Outcome Measure Oswestry LBP: 24 (48%) - G Codes & Severity Modifier G Codes & Modifier: n/a Source of G Code score: n/a Observation - Observation Inspection: pt appears lethargic with flat affect. pt with tightness B hamstrings L worse than R Posture: Forward Head, Rounded Shoulders Handedness: Right Gait - Gait Pattern General Gait Pattern Observation: No Deviations/Normal General Range of Motion: BUE WFL's. BLE WFL's Muscle Strength: BUE 5/5. BLE 5/5 - ROM Lumbar Flexion: Hand reach to Mid-Shins Sidebending to Left: Reach to Lateral Joint Line Sidebending to Right: Reach to Lateral Joint Line Lumbar Spine ROM Limitations: Soft Tissue Tightness, Pain - Strength Trunk Extension: 4 Good Trunk Flexion: 4- Good- Trunk Lateral Flexion: 4- Good- Trunk Rotation: 4- Good- - Special Tests PRIMO Test: Negative Left, Negative Right SLR Test: Positive Left, Positive Right Seated Dural Stretch Test: Negative Left, Negative Right Palpation Palpation Findings: Tenderness Comments:: tenderness noted to lumbar paraspinals as well as R lumbar area. Sensation - Sensation Right Upper Extremity: Intact/Normal Left Upper Extremity: Intact/Normal Right Lower Extremity: Intact/Normal Left Lower Extremity: Intact/Normal Balance - Sitting Balance Static Sitting Balance: Normal Dynamic Sitting Balance: Normal - Standing Balance Static Standing Balance: Normal Dynamic Standing Balance: Normal - Heat/Cryotherapy Treatment: Hot Pack Comments:: lumbar spine Interventions - Exercise/Activities/Manual Therapy Exercises/Activities: pt performed gentle hamstring stretch, pelvic tilt, isometric hip add, resisted hip flex Manual Therapy: n/a HOME EXERCISE PROGRAM: pt given written HEP including hamstring stretch, pelvic tilt, isometric hip add, resisted hip flex - Charges Timed Code Treatment Minutes: 42 Total Treatment Time: 55 Procedures billed for this date of service:: eval low hot pack EVALUATION COMPLEXITY LEVEL EVALUATION COMPLEXITY LEVEL: HISTORY: Low (back pain, ADHD, anxiety), EXAM OF BODY SYSTEMS: Medium (pain, strength, ROM), CLINICAL PRESENTATION: Low (stable) , CLINICAL DECISION MAKING: Low Assessment Assessment: pt presents with lumbar pain radiating into RLE. pt with tightness to hamstrings, decreased lumbar ROM due to pain. Feel pt would benefit from skilled PT for therex for ROM, strengthening, stretching, as well as modalities to decrease pain and inflammation. Patient Education: Home Exercise Program, Education of Plan of Care Rehab Potential: Good Short Term Goals Goal #1: pt report pain no longer keeping her awake at night. 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 #1: pt report ability to perform daily home/work tasks with decreased pain Goal to be met by: 12/25/17 Goal #2: pt with no reports of radiating pain into LE Goal to be met by: 12/25/17 Goal #3: pt with lumbar ROM WFL's Goal to be met by: 12/25/17 Goal #4: Improve oswestry score to < 10 Goal to be met by: 12/25/17 Plan - Treatment to be Provided Procedures: Therapeutic Exercises, Therapeutic Activity, Neuromuscular Rehab, Manual Therapy, Massage, Patient Education Modalities: Electrical Stimulation, Ultrasound/Phonophoresis, Class IV Laser, Cryotherapy, Hot Packs, Mechanical Traction - Treatment Plan Frequency: 2 X week Duration: 4 weeks ORDER # VISITS AND/OR THROUGH DATE: 12/25/17 - Treatment Code (1) Back pain of lumbar region with sciatica Code(s): M54.5 - LOW BACK PAIN (2) Hamstring tightness Code(s): M62.89 - OTHER SPECIFIED DISORDERS OF MUSCLE
== END 2017-12-02 23:59 ==
PROVIDERS: ATTEND Family Medicine
DX: M54.41 Lumbago with sciatica, right side (principal); M62.89 Other specified disorders of muscle

== ENCOUNTER 2018-08-31 21:45 | Emergency (ER) | payer MEDICAID, OTHER ==
[2018-08-31 21:52] VITALS: BP 106/69; TEMP 99.2; BMI 24.9
--- NOTE | 2018-08-31 22:19 | DI ---
Exam: Right foot three-view HISTORY: Injury and pain Findings / impression: No bony or articular abnormality. Negative exam.
--- NOTE | 2018-08-31 22:30 | DI ---
EXAM: Three views of the right ankle. HISTORY: Trauma. FINDINGS: The bones are intact with no evidence of fracture. The joint spaces are maintained. No so ft tissue abnormality. Impression: Negative right ankle.
[2018-08-31] MEDS ORDERED: TORADOL IM STA (22:32)
--- NOTE | 2018-08-31 22:32 | ED.PDOC ---
General ED Provider: Dr. RENETTA ALANIS-ER Chief Complaint: Ankle Pain/Injury Stated Complaint: i hurt my ankle Time Seen by Physician: 21:50 Mode of Arrival: Wheelchair Information Source: Patient Exam Limitations: No limitations Nursing and Triage Documentation Reviewed and Agree: Yes Does patient meet sepsis criteria?: No System Inflammatory Response Syndrome: Not Applicable Sepsis Protocol: For patient's 13 years and over: Temp is 96.8 and below OR 101 and greater Pulse >90 BPM Resp >20/minute Acutely Altered Mental Status Are patient's symptoms suggestive of a new infection, such as: -Pneumonia -Skin, Soft Tissue -Endocarditis -UTI -Bone, Joint Infection -Implantable Device -Acute Abdominal Infection -Wound Infection -Meningitis -Blood Stream Catheter Infection -Unknown Musculoskeletal Complaint Exam - Ankle/Foot Complaint/Exam Location of Injury: Reports: Right, Ankle Mechanism of Injury: Reports: Trauma Onset/Duration: 30- min Symptoms Are: Reports: Still present Onset of Pain: Reports: Immediate Initial Severity: Mild Current Severity: Moderate Location: Reports: Discrete Character: Reports: Dull, Aching, Spasmodic Aggravating: Reports: Movement, Weight bearing, Prolonged standing Able to Bear Weight: No Associated Signs and Symptoms: Reports: Swelling Gout Risk Factors: Reports: None Lower Extremity Findings: Present: Swelling, Tenderness, Limited range of motion Achilles Tendon Abnormality: No Tenderness: Present: Lateral malleolus Limited Range of Motion: Present: Inversion, Eversion Differential Diagnosis: Sprain Review of Systems - Review Of Systems Constitutional: Reports: No symptoms Eyes: Reports: No symptoms Ears, Nose, Mouth, Throat: Reports: No symptoms Respiratory: Reports: No symptoms Cardiac: Reports: No symptoms GI: Reports: No symptoms : Reports: No symptoms Musculoskeletal: Reports: Joint pain, Muscle pain Skin: Reports: No symptoms Neurological: Reports: No symptoms Endocrine: Reports: No symptoms Hematologic/Lymphatic: Reports: No symptoms All Other Systems: Reviewed and Negative Past Medical History - Past Medical History Previously Healthy: Yes Endocrine: Reports: None Cardiovascular: Reports: None Respiratory: Reports: None Hematological: Reports: None Gastrointestinal: Reports: None Genitourinary: Reports: Other Neuro/Psych: Reports: None Musculoskeletal: Reports: None Cancer: Reports: None Last Menstrual Period: LAST WEEK - Surgical History General Surgical History: Reports: Other - Family History Family History: Reports: Unknown - Social History Smoking Status: Current every day smoker, Heavy tobacco smoker Hx Substance Use: Yes Alcohol Screening: None - Immunizations Tetanus Shot up to Date: Yes Physical Exam - Physical Exam Appearance: Well-appearing, No pain distress, Well-nourished Eyes: BRIAN, EOMI, Conjunctiva clear ENT: Ears normal, Nose normal, Oropharynx normal Neck: Supple Respiratory: Airway patent Cardiovascular: RRR, Pulses normal, No rub, No murmur GI/: Soft, Nontender, No masses, Bowel sounds normal, No Organomegaly Musculoskeletal: Limited ROM Skin: Warm, Dry, Normal color Neurological: Sensation intact, Motor intact, Reflexes intact, Cranial nerves intact, Alert, Oriented Psychiatric: Affect appropriate, Mood appropriate Interpretation - Radiology Interpretation Radiology Interpretation By: Radiologist Radiology Results: Negative Critical Care Note - Critical Care Note Total Time (mins): 0 Course - Course Orders, Labs, Meds: Orders Category Date Time Status CRUTCHES [ED CRUTCHES] .ONCE EMERGENCY 08/31/18 22:30 Active ED JANIYA WRAP .ONCE EMERGENCY 08/31/18 22:30 Active ED SPLINT APPLICATION .ONCE EMERGENCY 08/31/18 22:30 Active Ketorolac Tromethamine [Toradol] MEDS 08/31/18 22:32 Stat 60 mg IM ONCE STA ANKLE, RIGHT MIN 3 VIEWS Stat RADS 08/31/18 21:56 Completed FOOT, RIGHT 3 VIEWS Stat RADS 08/31/18 21:56 Completed Medications Generic Name Dose Route Start Last Admin Trade Name Freq PRN Reason Stop Dose Admin Ketorolac Tromethamine 60 mg 08/31/18 22:32 Toradol IM 08/31/18 22:33 ONCE STA Vital Signs: Temp Pulse Resp BP Pulse Ox 08/31/18 21:45 99.2 F 98 H 18 106/69 98 Departure - Departure Time of Disposition: 22:33 Disposition: HOME SELF-CARE Discharge Problem: Ankle pain Instructions: Ankle Sprain (DC), Ankle Stirrup Splint (ED) Condition: Good Pt referred to PMD for follow-up: No IPMP verified?: No Additional Instructions: stay in splint--keep elevated whien rseting--f/u with pcp one week---norco 5mg q 4hrs prn pain #10 Allergies/Adverse Reactions: Allergies cyclobenzaprine [From Flexeril] Adverse Reaction (Verified 08/31/18 21:52) "MAKES ME MEAN" Home Medications: Ambulatory Orders 1 [No Reported Medications] 08/31/18 Disposition Discussed With: Patient, Family
== END 2018-08-31 22:58 | disposition home or self-care (01) ==
LOC: ED 21:45
DX: M25.571 Pain in right ankle and joints of right foot (principal); F17.210 Nicotine dependence, cigarettes, uncomplicated
CPT/HCPCS: 96372; 99283

== ENCOUNTER 2018-09-21 17:35 | Emergency (ER) ==
[2018-09-21 17:39] VITALS: BP 124/75; TEMP 98; BMI 24.0
[2018-09-21] MEDS ORDERED: LACTATED RINGERS 1,000 ML IV STA (17:53)
--- NOTE | 2018-09-21 18:03 | ED.PDOC ---
General ED Provider: Dr. RENETTA RIVERA Chief Complaint: Vaginal Bleeding Stated Complaint: Earnest 8 weeks pregnany and started bleeding today. Hx fo recurrent /multiple spontaneous abortions. G12-11- 0-P1 Time Seen by Physician: 17:50 Mode of Arrival: Walk-In Information Source: Patient Exam Limitations: No limitations Nursing and Triage Documentation Reviewed and Agree: Yes Does patient meet sepsis criteria?: No System Inflammatory Response Syndrome: Not Applicable Sepsis Protocol: For patient's 13 years and over: Temp is 96.8 and below OR 101 and greater Pulse >90 BPM Resp >20/minute Acutely Altered Mental Status Are patient's symptoms suggestive of a new infection, such as: -Pneumonia -Skin, Soft Tissue -Endocarditis -UTI -Bone, Joint Infection -Implantable Device -Acute Abdominal Infection -Wound Infection -Meningitis -Blood Stream Catheter Infection -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 Denies: Dizziness, Lightheadedness, Pale, UTI symptoms, Abdominal pain, Generalized pain Related History: Reports: Similar episode, Recent + test. Denies: Use of oral contraceptive, Use of Depoprovera : 12 Para: 1 Hx Total # of Abortions (Spontaneous & Elective): 11 Ectopic Risk Factors: Reports: None Spontaneous AB Risk Factors: Reports: Increased parity (also previous cervical dysplasia) Placental Abruption Risk Factors: Reports: Increased parity Abdominal Findings: Present: None Vulva Exam: Present: Normal Findings (1740 hrs) Vaginal Exam: Present: Normal Findings, Blood Cervical Exam: Present: Discharge (scant bleeding) Uterine Exam: Size WNL (in the pelvis and mobile), Tenderness (minimal) Adnexal Exam: Present: Normal Findings Differential Diagnoses: Threatened AB, Incomplete AB - Labor/Delivery Complaint/Exam Expected Date of Delivery: 09/18/18 Review of Systems - Review Of Systems Constitutional: Reports: No symptoms Eyes: Reports: No symptoms Ears, Nose, Mouth, Throat: Reports: No symptoms Respiratory: Reports: No symptoms Cardiac: Reports: No symptoms GI: Reports: No symptoms : Reports: No symptoms Musculoskeletal: Reports: No symptoms Skin: Reports: No symptoms Neurological: Reports: No symptoms Endocrine: Reports: No symptoms Hematologic/Lymphatic: Reports: No symptoms All Other Systems: Reviewed and Negative Past Medical History - Past Medical History Previously Healthy: Yes Endocrine: Reports: None Cardiovascular: Reports: None Respiratory: Reports: None Hematological: Reports: None Gastrointestinal: Reports: None Genitourinary: Reports: Other Neuro/Psych: Reports: None Musculoskeletal: Reports: None Cancer: Reports: None Last Menstrual Period: 10 weeks ago - Surgical History General Surgical History: Reports: Other - Family History Family History: Reports: Unknown - Social History Smoking Status: Current every day smoker Hx Substance Use: No Alcohol Screening: None Physical Exam - Physical Exam Appearance: Well-appearing, No pain distress, Well-nourished Ill-appearing: None Pain Distress: None Eyes: BRIAN, EOMI, Conjunctiva clear ENT: Ears normal, Nose normal, Oropharynx normal Respiratory: Airway patent, Breath sounds clear, Breath sounds equal, Respirations nonlabored Cardiovascular: RRR, Pulses normal, No rub, No murmur GI/: Soft, Nontender, No masses, Bowel sounds normal, No Organomegaly Musculoskeletal: Normal strength, ROM intact, No edema, No calf tenderness Skin: Warm, Dry, Normal color Neurological: Sensation intact, Motor intact, Reflexes intact, Cranial nerves intact, Alert, Oriented Psychiatric: Affect appropriate, Mood appropriate Critical Care Note - Critical Care Note Total Time (mins): 0 Course - Course Hematology/Chemistry: 09/21/18 18:15 Orders, Labs, Meds: Lab Review 09/21/18 09/21/18 09/21/18 18:15 18:15 18:15 WBC 6.67 RBC 4.70 Hgb 11.4 L Hct 36.0 L MCV 76.6 L MCH 24.3 L MCHC 31.7 L RDW Coeff of Flavio 17.8 H Plt Count 180 Immature Gran % (Auto) 0.3 Neut % (Auto) 57.4 Lymph % (Auto) 31.6 [place] % (Auto) 7.5 Eos % (Auto) 2.8 Baso % (Auto) 0.4 Immature Gran # (Auto) 0.0 Neut # (Auto) 3.8 Lymph # (Auto) 2.1 [place] # (Auto) 0.5 Eos # (Auto) 0.2 Baso # (Auto) 0.0 HCG, Quant < 2.390 Blood Type O POSITIVE Orders Category Date Time Status IV [ED IV/MEDIPORT/POWERPORT] .ONCE EMERGENCY 09/21/18 17:53 Active CBC W/ AUTO DIFF Stat LAB 09/21/18 18:15 Completed HCG,QUANTITATIVE Stat LAB 09/21/18 18:15 Completed TYPE/RH (INHOUSE LAB) [ABO/RH TYPE] Stat LAB 09/21/18 18:15 Completed 0.9 % Sodium Chloride [Saline Flush] MEDS 09/21/18 17:53 Ordered 1 syr IVF PRN PRN Ringers Lactated Solution [Lactated Ringers] 1,000 ml MEDS 09/21/18 17:53 Active IV BOLUS Medications Generic Name Dose Route Start Last Admin Trade Name Freq PRN Reason Stop Dose Admin Lactated Ringer's 1,000 mls @ 500 mls/hr 09/21/18 17:53 09/21/18 18:22 Lactated Ringers IV 09/21/18 19:52 500 mls/hr BOLUS STA Administration Sodium Chloride 1 syr 09/21/18 17:53 09/21/18 18:22 Saline Flush IVF 1 syr PRN PRN Administration To flush IV Vital Signs: Temp Pulse Resp BP Pulse Ox 09/21/18 17:36 98.0 F 80 20 124/75 99 Departure - Departure Time of Disposition: 19:00 Disposition: HOME SELF-CARE Discharge Problem: Vaginal bleeding, Spontaneous Instructions: Miscarriage (ED) Condition: Fair Pt referred to PMD for follow-up: Yes (next week) IPMP verified?: No Additional Instructions: HCG was < 2 indicative of non state; CBC suggestive of anemia-needs to take Iron supplement daily and increast iron rich food in diet Follow up with OB and PCP for follow up Seek OB consult regard multiple spontaneous abortions Allergies/Adverse Reactions: Allergies cyclobenzaprine [From Flexeril] Adverse Reaction (Verified 08/31/18 21:52) "MAKES ME MEAN" Home Medications: Ambulatory Orders 1 [No Reported Medications] 08/31/18 Disposition Discussed With: Patient, Family
== END 2018-09-21 19:10 | disposition home or self-care (01) ==
LOC: ED 17:35
DX: N93.9 Abnormal uterine and vaginal bleeding, unspecified (principal); Z3A.08 8 weeks gestation of pregnancy; R10.9 Unspecified abdominal pain; Z72.0 Tobacco use; O03.9 Complete or unspecified spontaneous abortion without complication
CPT/HCPCS: 36415; 84702; 85025; 86900; 96360; 96361; 99283